=== PATIENT | female | born 1985 | race Caucasian/White ===

== ENCOUNTER 2020-05-26 03:11 | Emergency (ER) | payer SELFPAY ==
[2020-05-26] MEDS ORDERED: Ondansetron 4 MG/2 ML SDV IVPUSH STA (03:48)
[2020-05-26] MEDS ORDERED: Sodium Chloride 0.9% 1,000 ML IV ONE ×2 (03:48→05:08)
[2020-05-26] MEDS ORDERED: HYDROmorphone 2 MG/ML SDV IVPUSH ONE (05:10)
[2020-05-26] MEDS ORDERED: Prochlorperazine 10 MG in Sodium Chloride 0.9% 50 ML IV ONE (05:10)
[2020-05-26] MEDS ORDERED: Prochlorperazine 10 MG/2 ML SDV IVPUSH ONE (05:45)
[2020-05-26] MEDS ORDERED: Ondansetron 4 MG Tab.DIS ONE (06:00)
--- NOTE | 2020-05-26 17:56 | ER ---
REASON FOR EMERGENCY ROOM VISIT: Nausea, vomiting, and diarrhea. HISTORY: This 35-year-old woman is up in the [facility] ice fishing along with her and children. They live in the [place] area, some 3 hours away from here. Early last evening, she stated that she developed some "acid burping" and went to sleep around 9 p.m. or 10 p.m. She awoke with more of this type of indigestion and experienced nausea; by midnight, she began to experience vomiting and did this repeatedly throughout the morning, approximately an hour or so after the onset of her nausea and vomiting, she began to have loose stools which became progressively more watery. She had a number of these throughout the morning. She complains of upper abdominal crampy pain. She has not been on any antibiotics recently. She denies any fever or chills. She does not have any respiratory symptoms. None of her family members have been ill recently. She is not on any control and her last normal menstrual period was 4 to 6 weeks ago. She denies any urinary symptoms. PAST MEDICAL HISTORY: Significant for: 1. C section x2. 2. Laparoscopic surgery for an ectopic in 2017. MEDICATIONS: Zoloft 100 mg p.o. daily. ALLERGIES: NONE TO MEDICATION. FAMILY HISTORY: Unremarkable. She has 1 sister who is alive and well. Her father is healthy. Her mother has hypothyroidism. REVIEW OF SYSTEMS: Pertinent positives and negatives as listed in the HPI. PHYSICAL EXAMINATION: GENERAL: Reveals a young woman who appears to be somewhat uncomfortable. She is sitting up in bed. VITAL SIGNS: She is afebrile. Heart rate is 101, blood pressure 140/91, respirations 20, O2 sats 100%. HEENT: Head is normocephalic. No scleral icterus or conjunctivitis. TMs are normal. Oropharynx is normal. NECK: Supple. No adenopathy is noted. CHEST: Clear to auscultation with good air exchange bilaterally and no wheezes, rhonchi, or rales. CARDIAC: Regular rate without murmur. ABDOMEN: Nondistended. There are a few bowel sounds present. ABDOMEN: Soft and nontender to superficial and deep palpation. There is no percussion tenderness. No hepatosplenomegaly or palpable masses are noted. EXTREMITIES: Normal pulses. No edema. She has no CVA tenderness. LABORATORY DATA: Her CBC does show a leukocytosis at 13,400 with a left shift. Her CMP is within normal limits except her glucose is 174 (nonfasting). Her amylase is within normal limits. We did go ahead and obtain a rapid test for COVID-19 and this was negative. Urinalysis was normal with no evidence of hematuria or UTI. Urinary test is negative. IMPRESSION: Gastroenteritis, most likely viral. PLAN: We gave a total of 2 L of IV normal saline in the ER based on her multiple emesis and her diarrhea, this was over approximately 2.5 hour. We also gave her 1 dose of Zofran 4 mg IV, and approximately an hour and a half later, she was still experiencing the same degree of nausea, so we followed that with 10 mg of Compazine IV and that produced a significant reduction in her nausea. She also received 1 mg of Dilaudid IV. By the time she was rehydrated and the above medicines were given, she was feeling substantially better. I told her that there is no reason at this point to proceed with things like CT scanning, and certainly, no medications such as antibiotics are indicated at this juncture. She understands that most of these are viral in origin. I advised them to cut the fishing trip short for the weekend and return home. She may well experience some recurrence of her nausea as the Compazine wears off, so we went ahead and gave her some Zofran ODT 4 mg, dispensed #5, one every 6 hours p.r.n. I told her that she should stay n.p.o. for the remainder of the morning, and then around noon, if she feels up to, she can begin taking clear liquids and advance that as tolerated. I think it is safe for her to stay on clear liquids for the remainder of this day and then play it by ear tomorrow depending on how she feels. If she gets worsening of her symptoms or fever or chills or increased abdominal pain, she should be seen again after she returns home this morning. All questions were answered. I explained this to her as well. They agree with this plan. ANGELINA/VIRA /[id number]
== END 2020-05-26 06:24 | disposition home or self-care (01) ==
LOC: LB.ED 03:11
DX: K52.9 Noninfective gastroenteritis and colitis, unspecified (principal); Z20.822 Contact with and (suspected) exposure to COVID-19
CPT/HCPCS: 36415; 80053; 81003; 81025; 82150; 85025; 96374; 96375; 99283; 99284-25; A9270-GY; J0780; J1170; J2405; U0002